=== PATIENT | female | born 2000 | race Hispanic/Latino ===

== ENCOUNTER 2018-02-20 18:50 | Emergency (ER) | payer OTHER | END 2018-02-20 19:51 | disposition left against medical advice (07) | LOC: ERS 18:50 | DX: Z53.21 Procedure and treatment not carried out due to patient leaving prior to being seen by health care provider (principal) ==

== ENCOUNTER 2023-07-11 16:56 | Emergency (ER) | payer BC, MEDICAID ==
[2023-07-11] MEDS ORDERED: Proparacaine 0.5% Opth 15 ML BOT ONE (17:27)
[2023-07-11] MEDS ORDERED: Fluorescein Opthalmic Strip ONE (17:27)
== END 2023-07-11 17:54 | disposition home or self-care (01) ==
LOC: ERS 16:56
DX: H10.9 Unspecified conjunctivitis (principal); F41.9 Anxiety disorder, unspecified; Z55.6 Problems related to health literacy
CPT/HCPCS: 99282

== ENCOUNTER 2024-01-09 22:40 | Emergency (ER) | payer BC, MEDICAID | END 2024-01-10 00:21 | disposition home or self-care (01) | LOC: ERS 22:40 | DX: S69.92XA Unspecified injury of left wrist, hand and finger(s), initial encounter (principal); W22.8XXA Striking against or struck by other objects, initial encounter; Y99.0 Civilian activity done for income or pay | CPT/HCPCS: 99283 ==